=== PATIENT | male | born 1965 | race Caucasian/White ===

== ENCOUNTER 2017-10-15 07:19 | Emergency (ER) | payer OTHER ==
[2017-10-15 07:56] LABS: PLATELET COUNT 186 10^3/uL (150-400)
--- NOTE | 2017-10-15 07:56 | EDPHY ---
H & P Time Seen by Provider: 10/15/17 07:32 HPI/ROS: Chief complaint. Chest pain HPI. 52-year-old male presents with 24 hr history of left anterior chest pain. Started yesterday morning. Continued through the day and night. He thought initially it was indigestion. His left anterior chest discomfort is described as tightness and achy. Some radiation to the left elbow. Worse with lying down and on his left side. It is worse with deep breath. Not worse with exertion. No shortness of breath. At times the discomfort has been enough that it doubles him over. He has had similar symptoms previously. No fever or cough. No unusual leg pain or swelling. Stress test 1 year ago normal. ROS Constitutional. no fever/chills, no weakness Eyes. no problems with vision ENT. no sore throat, no nasal drainage Cardiovascular. Chest pain Respiratory. no shortness of breath, no cough Abdominal. no abdominal pain, no nausea/vomiting, no diarrhea . no problems urinating MS. no calf pain/swelling, no neck/back pain, no joint pain Skin. no rash Lymph. no swollen glands Neuro. no headache, no dizziness, no difficulty walking or with speech Past Medical/Surgical History: Dyslipidemia Family history father had his 1st MA in his early 50s Social History: , nonsmoker, no alcohol Smoking Status: Never smoked Physical Exam: General Appearance: Alert well-developed male mild distress vital signs are stable Eyes: Pupils equal and round no pallor or injection. ENT, Mouth: Mucous membranes are moist. Respiratory: There are no retractions, lungs are clear to auscultation. Cardiovascular: Regular rate and rhythm. Gastrointestinal: Abdomen is soft and nontender, no masses, bowel sounds normal. Neurological: Awake and alert, sensory and motor exams grossly normal. Skin: Warm and dry, no rashes. Musculoskeletal: Neck is supple nontender. Extremities symmetrical, full range of motion. Psychiatric: Patient is oriented X 3, there is no agitation. Constitutional: Initial Vital Signs Temperature (C) 36.7 C 10/15/17 07:19 Heart Rate 74 10/15/17 07:19 Respiratory Rate 16 10/15/17 07:19 Blood Pressure 138/101 H 10/15/17 07:19 O2 Sat (%) 98 10/15/17 07:19 O2 Delivery Mode Room Air Allergies/Adverse Reactions: No Known Allergies Allergy (Unverified 10/13/09 16:46) Home Medications: Medication Instructions Recorded Niacin 10/15/17 Medical Decision Making - Diagnostics EKG Interpretation: EKG interpreted by me shows normal sinus rhythm normal interval and axis. QRS is normal there is no significant ST elevation or depression. Arrhythmia. The rate is 75 Imaging Results: Imaging Impressions Chest X-Ray 10/15/17 08:23 Impression: Chest negative for acute abnormality. Chest/Thorax CTA 10/15/17 10:10 Impression: 1. No visible pulmonary embolus. 2. Tiny left pleural effusion with scattered atelectasis. Findings discussed with Dr. Pablito Dozier on October 15, 2017 at 1105 hours. One-view chest x-ray interpreted by me is normal Procedures: IV normal saline, monitor IV Toradol and GI cocktail without change of symptoms ED Course/Re-evaluation: Re-evaluation 8:35a patient is stable. He and I discussed imaging lab an EKG findings. We discussed treatment plan including use of Toradol and GI cocktail to see if we could help relieve his symptoms. He expresses understanding and agreement I consulted and discussed case Dr. Hitchcock for Cardiology. He sees the patient in the emergency department. He recommends 5 mg of metoprolol and then CT angiogram chest. I discussed this with the patient. He is amenable 12 15 patient is stable however continues to have some left chest discomfort I discussed the case again and findings with Dr. Hitchcock who recommends Q 6 hr ibuprofen and recheck in their office tomorrow. Differential Diagnosis: I considered acute coronary syndrome, aortic dissection, pulmonary embolus, pancreatitis, musculoskeletal. - Data Points Laboratory Results: Laboratory Results 10/15/17 07:40 10/15/17 07:40 10/15/17 10/15/17 10/15/17 07:40 07:40 07:40 WBC 5.57 10^3/uL 10^3/uL (3.80-9.50) RBC 5.49 10^6/uL 10^6/uL (4.40-6.38) Hgb 16.8 g/dL g/dL (13.7-17.5) Hct 48.8 % % (40.0-51.0) MCV 88.9 fL fL (81.5-99.8) MCH 30.6 pg pg (27.9-34.1) MCHC 34.4 g/dL g/dL (32.4-36.7) RDW 12.2 % % (11.5-15.2) Plt Count 186 10^3/uL 10^3/uL (150-400) MPV 10.7 fL fL (8.7-11.7) Neut % (Auto) 54.2 % % (39.3-74.2) Lymph % (Auto) 33.6 % % (15.0-45.0) [place] % (Auto) 9.2 % % (4.5-13.0) Eos % (Auto) 1.6 % % (0.6-7.6) Baso % (Auto) 0.9 % % (0.3-1.7) Nucleat RBC Rel Count 0.0 % % (0.0-0.2) Absolute Neuts (auto) 3.02 10^3/uL 10^3/uL (1.70-6.50) Absolute Lymphs (auto) 1.87 10^3/uL 10^3/uL (1.00-3.00) Absolute Monos (auto) 0.51 10^3/uL 10^3/uL (0.30-0.80) Absolute Eos (auto) 0.09 10^3/uL 10^3/uL (0.03-0.40) Absolute Basos (auto) 0.05 10^3/uL 10^3/uL (0.02-0.10) Absolute Nucleated RBC 0.00 10^3/uL 10^3/uL (0-0.01) Immature Gran % 0.5 % % (0.0-1.1) Immature Gran # 0.03 10^3/uL 10^3/uL (0.00-0.10) D-Dimer < 0.27 ug/mLFEU ug/mLFEU (0.00-0.50) Sodium 144 mEq/L mEq/L (135-145) Potassium 4.3 mEq/L mEq/L (3.3-5.0) Chloride 106 mEq/L mEq/L (97-110) Carbon Dioxide 25 mEq/l mEq/l (22-31) Anion Gap 13 mEq/L mEq/L (8-16) BUN 12 mg/dL mg/dL (7-23) Creatinine 0.9 mg/dL mg/dL (0.7-1.3) Estimated GFR > 60 Glucose 113 mg/dL H mg/dL (70-100) Calcium 9.7 mg/dL mg/dL (8.5-10.4) Troponin I < 0.012 ng/mL ng/mL (0.000-0.034) Lipase 72 IU/L IU/L (23-300) Medications Given: Discontinued Medications Al Hydroxide/Mg Hydroxide (Maalox Susp) 30 ml PO ONCE ONE Stop: 10/15/17 08:39 Last Admin: 10/15/17 08:44 Dose: 30 ml Sodium Chloride (Ns) 1,000 mls @ 0 mls/hr IV ONCE ONE; Wide Open PRN Reason: Protocol Stop: 10/15/17 10:10 Last Admin: 10/15/17 10:17 Dose: 1,000 mls Ketorolac Tromethamine (Toradol) 30 mg IVP EDNOW ONE Stop: 10/15/17 08:39 Last Admin: 10/15/17 08:42 Dose: 30 mg Lidocaine (Lidocaine 2% Viscous) 15 ml PO ONCE ONE Stop: 10/15/17 08:39 Last Admin: 10/15/17 08:44 Dose: 15 ml Metoprolol Tartrate (Lopressor Injection) 5 mg IVP EDNOW ONE Stop: 10/15/17 10:11 Last Admin: 10/15/17 10:18 Dose: 5 mg Departure - Departure Disposition: Home, Routine, Self-Care Clinical Impression: Chest pain Qualifiers: Chest pain type: unspecified Qualified Code(s): R07.9 - Chest pain, unspecified Condition: Good Instructions: Chest Pain (ED) Additional Instructions: Ibuprofen 600 mg every 6 hours next 24 hr. Easy activity today. Return for worsening chest discomfort, trouble breathing Dr. Hitchcock would like you to check in with their office tomorrow. Please call their office and ask for Moses who is Dr. Hitchcock's nurse Referrals: NONE *PRIMARY CARE P,. [Primary Care Provider] - As per Instructions Dmitri Hitchcock MD [Medical Doctor] - 1 day without fail
[2017-10-15] MEDS ORDERED: MAG HYDROX/AL HYDROX/SIMETH 30 ML UDCUP PO ONE (08:38)
[2017-10-15] MEDS ORDERED: LIDOCAINE 2% VISCOUS 15 ML UDCUP PO ONE (08:38)
[2017-10-15] MEDS ORDERED: KETOROLAC 30 MG/1 ML SDV IVP ONE (08:38)
--- NOTE | 2017-10-15 09:27 | CPEKG ---
Heart Rate: 75 RR Interval: 800 P-R Interval: 168 QRSD Interval: 84 QT Interval: 364 QTC Interval: 407 P [place]: 64 QRS [place]: 66 T Wave [place]: 64 EKG Severity - NORMAL ECG - EKG Impression: SINUS RHYTHM Electronically Signed By: Pablito Dozier 15-Oct-2017 09:30:15
--- NOTE | 2017-10-15 10:06 | PDCONSULT ---
Tc Operator Note: CC: chest pain HPI: Patient is a 52 y/o male with strong, premature CAD to the family as well as personal history of HLP (on niacin), who presents to the ER at [facility] with complaints of chest discomfort. Discomfort is a pain, localizes to the left chest, and on pain scale is 4/10. Symptoms started yesterday, and overnight, kept the patient from sleeping. No symptoms similar in the past - specifically of this duration. Patient does not feel that this is related to GI system, and in the ER, oral therapy did not affect/change the symptoms at all. There is a respiratory component (deep inspiration yields more discomfort) as well as possible positional component (lying flat seemed to make the discomfort greater) . Cardiac biomarkers were normal, and ECG in the ER was normal without dynamic ST/T wave changes noted. Outpatient cardiology following with Dr. Gaston Ma, and a regular ETT about one year ago without pathology noted. Occasional alcohol consumption, but not regular. No tobacco use. Family history is reportedly "bad" with premature parental CAD history. No fevers or chills, no constipation or diarrhea, and the remainder of the 12 point review of systems was unremarkable. PMHx: (1) HLP (2) No CAD, HTN, or DM FHx: as above, (+) for premature CAD NKDA Medications: Niacin SHx: occasional ETOH, no tobacco, no illicits PE: vitals as below GEN: comfortable SKIN: no rash HEENT: NCAT with PERRLA Neck: no JVD LUNGS: normal breath sounds, no crackles, wheeze, or rales COR: RRR without m/r/g, normal S1S2, no S3 ABD: soft, NTND EXT: no edema, 2+ DP/PT/RAD pulses Neuro: no deficits Laboratory Tests 10/15/17 10/15/17 10/15/17 07:40 07:40 07:40 WBC 5.57 Hgb 16.8 Hct 48.8 Plt Count 186 D-Dimer < 0.27 Potassium 4.3 Creatinine 0.9 Estimated GFR > 60 Troponin I < 0.012 ECG with normal sinus rhythm without ST/T wave changes CXR without infiltrates. Normal heart size Assessment: Uncertain etiology for the patient complaints. Thoughts of pericarditis/ pleuritis given some components of the complaints. No ECG changes. No cardiac biomarker elevation. Patient does have CV risks (male, over 50 years of age, HLP, and strong family history) with [place] CV risk at 7.4%. Plan/Recommendations: Discussion about options with the patient. One option, that affords some degree of invasive assessment would be CTA with coronary angiography addressed. It does not make sense to subject the patient to ETT (non nuclear with normal ECG) given the ongoing complaints of chest pains. Further recommendations after testing has been completed. Would consider statins of niacin therapy alone given the most recent data on niacin therapy Patient should also consider ASA therapy (81 mg per day) given the patient's age and noted CV risks.
[2017-10-15] MEDS ORDERED: NS 1,000 ML IV ONE (10:09)
[2017-10-15] MEDS ORDERED: METOPROLOL TARTRATE 5 MG/5 ML INJ IVP ONE (10:10)
[2017-10-15] MEDS ORDERED: IOPAMIDOL (ISOVUE 370) 100 ML BTL IV ONE (10:19)
[2017-10-15 12:15] VITALS: BP 123/77
== END 2017-10-15 12:29 | disposition home or self-care (01) ==
DX: R07.9 Chest pain, unspecified (principal); E86.9 Volume depletion, unspecified
CPT/HCPCS: 96374; J1885; Q9967